=== PATIENT | female | born 1950 | race Hispanic/Latino ===

== ENCOUNTER 2019-02-04 09:57 | Day surgery (SDC) | payer MEDICARE ==
[~2019-02-04 09:57] MED LIST: NACL 0.9% 1000 ML 1,000 ML IV SCH
[2019-02-04] MEDS: NACL 0.9% 1000 ML 1,000 ML IV SCH ×2 (10:30→10:56)
--- NOTE | 2019-02-04 11:12 | Anesthesia Day of Surgery ---
Anesthesia Day of Surgery - Day of Surgery Patient Examined: Yes Patient H&P Reviewed: Yes Patient is NPO: Yes
--- NOTE | 2019-02-04 11:12 | Anesthesia Consultation ---
Anesthesia Consult and Med Hx Date of service: 02/04/19 - Airway Anesthetic Teeth Evaluation: Dentures ROM Head & Neck: Adequate Mental/Hyoid Distance: Adequate Mallampati Class: Class III Intubation Access Assessment: Possibly Difficult (small mouth opening) - Pulmonary Exam CTA: Yes - Cardiac Exam Cardiac Exam: RRR - Pre-Operative Health Status ASA Pre-Surgery Classification: ASA2 Proposed Anesthetic Plan: MAC - Pulmonary Hx Smoking: Yes (quit 1998; formerly <1/2 PPD) Hx Respiratory Symptoms: No - Cardiovascular System Hx Hypertension: Yes (took triampterene today) Hx Heart Attack/AMI: No Hx Percutaneous Transluminal Coronary Angioplasty (PTCA): No Hx Cardia Arrhythmia: No - Central Nervous System Hx Seizures: No CVA: No - Gastrointestinal Hx Gastroesophageal Reflux Disease: No - Endocrine Hx Renal Disease: No Hx Liver Disease: No Hx Insulin Dependent Diabetes: No Hx Non-Insulin Dependent Diabetes: No Hx Hypothyroidism: Yes - Other Systems Hx Obesity: Yes - Additional Comments Anesthesia Medical History Comments: No hx anesthetic complications.
[2019-02-04] MEDS ORDERED: DIPRIVAN 10 MG/ML IV ONE ×3 (11:17)
[2019-02-04] MEDS ORDERED: WATER FOR IRRIG STERILE IR ONE (11:45)
[2019-02-04] MEDS ORDERED: WATER FOR IRRIG STERILE ONE (11:46)
--- NOTE | 2019-02-04 12:00 | Operative Report ---
Operative Report Operative Report: Date of procedure: 02/04/2019 Procedure: Colonoscopy. Attending physician: Valentin Villalpando MD Rare/Endangered Species Specialist: Valentin Villalpando MD Indication: Patient is a 68-year-old female who presents for colonoscopy because of past history of colon polyps. A colonoscopy serves to evaluate patient so that treatment may be directed based on the findings. Consent: Informed consent was obtained after advising the patient and family regarding nature of this procedure, its indications, potential benefits as well as possible complications including but not limited to bleeding perforation and adverse reaction to medication, infection as well as other cardiopulmonary complications. An informed written and verbal consent was then obtained after due opportunity was provided for questions and answers. Monitoring: Patient was monitored continuously with pulse oximetry and electrocardiographic recordings as well as blood pressure recordings. Vital signs remained stable throughout this procedure with no untoward events. Preoperative assessment: Patient was assessed immediately prior to this procedure for capacity to tolerate monitored anesthesia care and moderate sedation as well as general anesthesia. Patient's ASA classification is 2, Mallampati class is 2, Hyomental distance is 3. Instrument: Olympus video colonoscope Medications: Propofol given intravenously in divided doses. For details please refer to anesthesia records. Description of procedure: Patient was placed in the left lateral decubitus pos ition after achieving sedation, a digital rectal examination was performed following which the colonoscope was introduced into the anal verge and advanced to the cecum which was identified by the cecal valve, the appendiceal orifice, as well as by the cecal strap and direct transillumination. The colonoscope was subsequently withdrawn with careful inspection of all mucosal surfaces. Patient tolerated this procedure well and was subsequently taken to the recovery room. The following findings were noted. Findings: The preparation was fair with substantial retained stool in the cecum and proximal ascending colon and also scattered thick liquid stool in various sections of the colon. The liquid stool irrigated as much as possible. There were scattered diverticula seen in the sigmoid and descending colon. The rest of the colon was normal. On the retroflexed view at the anal verge, patient had internal hemorrhoids. 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 Retained stool Internal hemorrhoids. Plan: High-fiber diet. Repeat colonoscopy in 5 years.
--- NOTE | 2019-02-04 12:00 | Discharge Summary ---
Short Stay Discharge Plan Activity: advance as tolerated Weight Bearing Status: Weight Bear as Tolerated Diet: regular Follow up with: GEORGETTE MELGAR MD [Primary Care Provider] - 7 Days
[2019-02-04] MEDS ORDERED: ZOFRAN ONE (12:12)
[2019-02-04 12:51] VITALS: BP 134/71
[2019-02-04] MEDS ORDERED: ZOFRAN IV ONE (13:19)
== END 2019-02-04 09:58 | disposition home or self-care (01) ==
LOC: GIO 09:57
PROVIDERS: ATTEND Internal Medicine Gastroenterology
DX: K57.30 Diverticulosis of large intestine without perforation or abscess without bleeding (principal); K64.8 Other hemorrhoids; I10 Essential (primary) hypertension; E66.9 Obesity, unspecified; K21.9 Gastro-esophageal reflux disease without esophagitis; M19.90 Unspecified osteoarthritis, unspecified site; M81.0 Age-related osteoporosis without current pathological fracture; E03.9 Hypothyroidism, unspecified; F32.9 Major depressive disorder, single episode, unspecified; Z88.2 Allergy status to sulfonamides; Z88.5 Allergy status to narcotic agent; Z79.899 Other long term (current) drug therapy; Z87.891 Personal history of nicotine dependence; Z90.49 Acquired absence of other specified parts of digestive tract; Z90.710 Acquired absence of both cervix and uterus; Z96.652 Presence of left artificial knee joint; Z98.890 Other specified postprocedural states; Z85.41 Personal history of malignant neoplasm of cervix uteri; Z68.32 Body mass index [BMI] 32.0-32.9, adult
CPT/HCPCS: 45378; 82962; J2405; J2704; J7030

== ENCOUNTER 2022-01-24 14:28 | Emergency (ER) | payer MEDICARE ==
--- NOTE | 2022-01-24 16:02 | XRay Report ---
CHEST 2 VIEWS INDICATION / CLINICAL INFORMATION: Chest Pain. COMPARISON: 05/26/2021 FINDINGS: SUPPORT DEVICES: None. HEART / MEDIASTINUM: No significant abnormality. LUNGS / PLEURA: No significant pulmonary or pleural abnormality. No pneumothorax. ADDITIONAL FINDINGS: No significant additional findings. IMPRESSION: 1. No acute findings. Signer Name: Mateo Escobar MD Signed: 01/24/2022 3:57 PM Workstation Name: [id number]
[2022-01-24 16:49] LABS: Basophils % (Auto) 0.7 % (0.0-1.8); Eosinophils # (Auto) 0.1 K/mm3 (0.0-0.4); Eosinophils % (Auto) 2.3 % (0.0-4.3); Hematocrit 41.9 % (30.3-42.9); Hemoglobin 13.3 gm/dl (10.1-14.3); Lymphocytes % (Auto) 33.2 % (13.4-35.0); Mean Corpuscular HGB Conc 32 % (30-34); Mean Corpuscular Volume 86 fl (79-97); Monocytes # (Auto) 0.5 K/mm3 (0.0-0.8); Monocytes % (Auto) 8.1 % (0.0-7.3); Platelet Count 100 K/mm3 (140-440); Red Blood Count 4.87 M/mm3 (3.65-5.03); Red Cell Distribution Width 18.3 % (13.2-15.2)
[2022-01-24] MEDS ORDERED: ASPIRIN 325 MG TAB PO ONE (17:11)
[2022-01-24 17:17] LABS: Alanine Aminotransferase 8 units/L (7-56); Albumin 4.1 g/dL (3.9-5); Blood Urea Nitrogen 9 mg/dL (7-17); Calcium 9.3 mg/dL (8.4-10.2); Hemolysis Index 5
[2022-01-24 17:22] LABS: BUN/Creatinine Ratio 15
[2022-01-24 18:33] LABS: Bacteria,Urine 1+ /HPF (Negative); Mucus,Urine FEW /HPF
[2022-01-24 18:49] LABS: Bilirubin,Urine Negative (Negative); Blood,Urine Negative (Negative); Color,Urine LT YELLOW (Yellow); Protein,Urine <15 mg/dL mg/dL (Negative); WBC,Urine > 182.0 /HPF (0.0-6.0)
--- NOTE | 2022-01-24 19:34 | Emergency Department Report ---
ED Chest Pain HPI - General Chief Complaint: Chest Pain Stated Complaint: SOB/HEART BLOCKAGE PUI?: No Time Seen by Provider: 01/24/22 16:54 Source: patient Mode of arrival: Ambulatory Limitations: No Limitations - History of Present Illness Initial Comments: Pt was sent by Dr. Kahn office due to chest pain and SOB x1week Complaint: chest pain -: Gradual, days(s) Onset: during rest Pain Location: substernal Pain Radiation: none Severity scale (0 -10): 2 Quality: tightness Consistency: intermittent Improves With: nothing Worsens With: nothing re: nausea Treatments Prior to Arrival: none - Related Data Home Medications Medication Instructions Recorded Confirmed Last Taken Levothyroxine Sodium [Tirosint] 1 tab PO DAILY 02/04/19 05/26/21 05/26/21 09:00 Rosuvastatin Calcium 40 mg PO DAILY 02/04/19 05/26/21 05/26/21 09:00 Triamter/Hctz 37.5-25 mg 1 tab PO QDAY 02/04/19 05/26/21 05/26/21 09:00 [Maxzide-25] gemfibroziL [Lopid] 600 mg PO BID 02/04/19 05/26/21 05/26/21 09:00 Previous Rx's Medication Instructions Recorded Last Taken Type Aspirin [Adult Aspirin] 81 mg PO DAILY #30 01/24/22 Unknown Rx Levothyroxine Sodium 200 mcg PO DAILY #30 cap 01/24/22 Unknown Rx [Levothyroxine] Lisinopril [Zestril] 5 mg PO DAILY #30 01/24/22 Unknown Rx Triamter/Hctz 37.5-25 mg 1 tab PO QDAY #30 01/24/22 Unknown Rx [Maxzide-25] gemfibroziL [Lopid] 600 mg PO BID #60 tablet 01/24/22 Unknown Rx Allergies Allergy/AdvReac Type Severity Reaction Status Date / Time codeine Allergy Rash Verified 01/24/22 14:47 Sulfa (Sulfonamide Allergy Itching Verified 01/24/22 14:47 Antibiotics) Heart Score - HEART Score History: Slightly suspicious EKG: Normal Age: > 65 Risk factors: 1-2 risk factors Troponin: < normal limit HEART Score: 3 - EKG Read Time Time EKG Completed: 14:52 EKG Read Time: 14:52 - Critical Actions Critical Actions: 0-3 pts:0.9-1.7%risk of adverse cardiac event.Candidate for discharge ED Review of Systems ROS: Stated complaint: SOB/HEART BLOCKAGE Other details as noted in HPI Constitutional: denies: chills, fever Eyes: denies: eye pain, eye discharge, vision change ENT: denies: ear pain, throat pain Respiratory: denies: cough, shortness of breath, wheezing Cardiovascular: denies: chest pain, palpitations Endocrine: no symptoms reported Gastrointestinal: denies: abdominal pain, nausea, diarrhea Genitourinary: denies: urgency, dysuria, discharge Musculoskeletal: denies: back pain, joint swelling, arthralgia Skin: denies: rash, lesions Neurological: denies: headache, weakness, paresthesias Psychiatric: denies: anxiety, depression Hematological/Lymphatic: denies: easy bleeding, easy bruising ED Past Medical Hx - Past Medical History Previous Medical History?: Yes Hx Hypertension: Yes Hx Heart Attack/AMI: No Hx Diabetes: Yes Hx GERD: Yes Hx Liver Disease: No Hx Renal Disease: No Hx Arthritis: Yes Hx Seizures: No - Surgical History Past Surgical History?: Yes Hx Cholecystectomy: Yes - Social History Smoking Status: Never Smoker Substance Use Type: None - Medications Home Medications: Home Medications Medication Instructions Recorded Confirmed Last Taken Type Levothyroxine Sodium [Tirosint] 1 tab PO DAILY 02/04/19 05/26/21 05/26/21 09:00 History Rosuvastatin Calcium 40 mg PO DAILY 02/04/19 05/26/21 05/26/21 09:00 History Triamter/Hctz 37.5-25 mg 1 tab PO QDAY 02/04/19 05/26/21 05/26/21 09:00 History [Maxzide-25] gemfibroziL [Lopid] 600 mg PO BID 02/04/19 05/26/21 05/26/21 09:00 History Aspirin [Adult Aspirin] 81 mg PO DAILY #30 01/24/22 Unknown Rx Levothyroxine Sodium 200 mcg PO DAILY #30 cap 01/24/22 Unknown Rx [Levothyroxine] Lisinopril [Zestril] 5 mg PO DAILY #30 01/24/22 Unknown Rx Triamter/Hctz 37.5-25 mg 1 tab PO QDAY #30 01/24/22 Unknown Rx [Maxzide-25] gemfibroziL [Lopid] 600 mg PO BID #60 tablet 01/24/22 Unknown Rx ED Physical Exam - General Limitations: No Limitations General appearance: alert, in no apparent distress - Head Head exam: Present: atraumatic, normocephalic - Eye Eye exam: Present: normal appearance - ENT ENT exam: Present: mucous membranes moist - Neck Neck exam: Present: normal inspection - Respiratory Respiratory exam: Present: normal lung sounds bilaterally. Absent: respiratory distress - Cardiovascular Cardiovascular Exam: Present: regular rate, normal rhythm. Absent: systolic murmur, diastolic murmur, rubs, gallop - GI/Abdominal GI/Abdominal exam: Present: soft, normal bowel sounds - Extremities Exam Extremities exam: Present: normal inspection - Back Exam Back exam: Present: normal inspection - Neurological Exam Neurological exam: Present: alert, oriented X3 - Psychiatric Psychiatric exam: Present: normal affect, normal mood - Skin Skin exam: Present: warm, dry, intact, normal color. Absent: rash ED Course Vital Signs 01/24/22 01/24/22 01/24/22 14:45 14:47 17:35 Temperature 98.2 F 98.8 F Pulse Rate 61 61 54 L Respiratory 18 18 11 L Rate Blood Pressure 140/67 Blood Pressure 140/67 [Left] O2 Sat by Pulse 96 100 99 Oximetry 01/24/22 01/24/22 01/24/22 17:42 17:45 18:01 Temperature 98.6 F Pulse Rate 63 51 L 65 Respiratory 18 15 12 Rate Blood Pressure 150/66 150/66 Blood Pressure 132/73 [Left] O2 Sat by Pulse 100 98 98 Oximetry 01/24/22 01/24/22 01/24/22 18:15 18:31 18:45 Temperature Pulse Rate 53 L 51 L 59 L Respiratory 11 L 14 11 L Rate Blood Pressure 120/57 125/69 128/65 Blood Pressure [Left] O2 Sat by Pulse 99 99 99 Oximetry ED Medical Decision Making - Lab Data Result diagrams: 01/24/22 15:41 01/24/22 15:41 - EKG Data -: EKG Interpreted by [place] EKG shows normal: sinus rhythm - EKG Data Interpretation: LVH - Radiology Data Radiology results: report reviewed, image reviewed - Medical Decision Making work up negative dimer negative , vss no distress, pt requests refill of her meds Critical care attestation.: If time is entered above; I have spent that time in minutes in the direct care of this critically ill patient, excluding procedure time. ED Disposition Clinical Impression: Chest pain, Medication refill Disposition: HOME / SELF CARE / HOMELESS Is pt being admited?: No Does the pt Need Aspirin: No Condition: Stable Instructions: Nonspecific Chest Pain, Adult Referrals: PRIMARY CARE, [Primary Care Provider] - 3-5 Days
[2022-01-24 21:29] VITALS: BP 129/73
--- NOTE | 2022-01-25 14:19 | Electrocardiograph Report ---
[facility] Test Date: 2022-01-24 Test Time: 14:52:25 Pat Name: RICH LLOYD Department: Room: Gender: F Clinical Transplant Coordinator: 0000 : 1950 Requested By: ROSELIA SARAVIA Order Number: [id number] Reading MD: Leandro Kingston Measurements Intervals [place] Rate: 54 P: 23 AR: 139 QRS: -31 QRSD: 95 T: -5 QT: 448 QTc: 426 Interpretive Statements Sinus rhythm Consider left ventricular hypertrophy Compared to ECG 05/26/2021 16:05:57 Ventricular ectopy is no longer evident Electronically Signed On 01-25-2022 14:19:18 EDT by Leandro Kingston
== END 2022-01-24 20:29 | disposition home or self-care (01) ==
LOC: ED 14:28
DX: R07.9 Chest pain, unspecified (principal); Z76.0 Encounter for issue of repeat prescription; I10 Essential (primary) hypertension; E11.9 Type 2 diabetes mellitus without complications
CPT/HCPCS: 36415; 71046; 80053; 81001; 82550; 83690; 83880; 84484; 85025; 85379; 93005; 99284